=== PATIENT | male | born 1980 | race Caucasian/White ===

== ENCOUNTER 2024-05-07 00:54 | Emergency (ER) | payer OTHER, SELFPAY ==
[2024-05-07 00:57] VITALS: BP 131/88
[2024-05-07 01:35] LABS: Amphetamines Negative (Negative); Barbiturates Negative (Negative); Benzodiazepines Positive (Negative); Buprenorphine Negative (Negative); Cocaine Negative (Negative); Marijuana Positive (Negative); Methadone Negative (Negative); Methamphetamines Negative (Negative); Opiates Negative (Negative); Phencyclidine Negative (Negative); Tricyclic Antidepressants Negative (Negative)
[2024-05-07 01:45] LABS: Fentanyl, Urine Negative (Negative)
[2024-05-07 02:45] VITALS: BMI 23.3
[2024-05-07 02:49] VITALS: BP 110/75
[2024-05-07 03:00] VITALS: BP 122/81
--- NOTE | 2024-05-07 03:25 | ED.GENMED ---
History of Present Illness
General
Chief Complaint: Substance Abuse
Source: patient and family
Exam Limitations: clinical condition and altered mental status
Time Seen by Provider: 05/07/24 03:13
Nursing documentation reviewed up to this point in time: agreed with
History of Present Illness
History of Present Illness:
43-year-old male presents to the emergency department requesting detox from opiates marijuana and Kratom. Patient was recently discharged from a psych facility. Patient states that he request rehab. Patient's significant other reports that she
was on the phone with crisis and his therapist today and they told him to come into the emergency department to see Manoj arguetas for help with placement. Patient has no other complaints at this time.
Review of Systems
Review of Systems
Allergies reviewed?: Yes
Other source history: family
All Other Systems: ROS reviewed and negative except as documented in HPI and ROS
Constitutional: Reports no symptoms
EENT: Reports no symptoms
Respiratory: Reports no symptoms
Cardiac: Reports no symptoms
ABD/GI: Reports no symptoms
: Reports no symptoms
Musculoskeletal: Reports no symptoms
Skin: Reports no symptoms
Neurological: Reports no symptoms
Endocrine: Reports no symptoms
Hematologic/Lymphatic: Reports no symptoms
Psychiatric: Reports anxiety; Denies depression or suicidal
Phy Exam
General Physical Exam
General Presentation: mild distress
General age: appears older than age
General Skin: warm and dry
General Habitus: normal
General Hydration: appears well hydrated
Cardiovascular Exam
Cardiovascular Exam: regular rate/rhythm and no edema
Neurological Exam
Neurological Exam: alert, oriented x3, appears intoxicated and slurred speech
Musculoskeletal Exam
Musculoskeletal Exam: full ROM
Skin Exam
Skin Exam: normal color and warm/dry
Psychiatric Exam
Psychiatric Exam: normal mood/affect
Course
Orders/Labs/Results
Orders:
Orders
08/23/24 01:10
Fentanyl, Urine Urgent
Urine Drug Abuse Screen Urgent
Date Specimen was Collected: 05/07/24
Time Specimen was Collected: 01:06
05/07/24 03:43
Acetaminophen Urgent
Alcohol Urgent
Complete Blood Count/With Diff Urgent
Comprehensive Metabolic Panel Urgent
Salicylate Urgent
05/07/24 04:18
PTT Urgent
Comment: REDRAW
Prothrombin Time Urgent
Is patient on Coumadin/Warfarin?: Unknown
Comment: REDRAW
Abnormal Lab Results
05/07/24 05/07/24
01:10 03:43
MCH 31.5 H pg
(27.0-31.0)
Absolute Monos (auto) 0.8 H 10^3/uL
(0.1-0.6)
Salicylates < 1.0 L mg/dl
(2.0-20.0)
Ur Oxycodone Screen Positive H
(Negative)
Acetaminophen < 10 L ug/ml
(10-30)
U Benzodiazepines Scrn Positive H
(Negative)
U Marijuana (THC) Screen Positive H
(Negative)
05/07/24 03:43
05/07/24 03:43
Vital Signs
Initial and Last Documented VS:
Initial Vital Signs
Temp Pulse Resp BP Pulse Ox
97.6 F 94 18 131/88 95
05/07/24 00:57 05/07/24 00:57 05/07/24 00:57 05/07/24 00:57 05/07/24 00:57
Last Documented Vital Signs
Temp Pulse Resp BP Pulse Ox
97.6 F 65 20 122/81 96
05/07/24 02:45 05/07/24 06:45 05/07/24 06:45 05/07/24 03:00 05/07/24 06:45
*Critical Care Note
Total Time (30-74mins, 75-104mins- exclusive of procedures): Not Applicable
ED Attending Note
-
Portions of this chart may have been created with voice recognition software.� Occasional wrong word or��sound alike� substitutions may have occurred due to the inherent limitations of voice recognition software.
Discharge Plan
Departure
Patient Disposition: Acute Rehab Facility
Date of Disposition: 05/07/24
Time of Disposition: 06:26
Discharge Problem:
Polysubstance abuse
Instructions: Polysubstance Use Disorder (DC), BLOOD PRESSURE
Prescriptions:
No Action
sodium,potassium,mag sulfates [Suprep Bowel Prep Kit] 17.5-3.13-1.6 gram Recon Soln
1 oz PO PRE OP PRN (Reason: pre op)
Marijuana
1 dose inhalation PRN PRN (Reason: anxiety)
Patient Comments:
Smokes joints
acetaminophen [acetaminophen] 325 mg tablet
650 mg PO Q4HPRN PRN (Reason: mild pain) Qty: 1 0RF
ibuprofen 200 mg tablet
400 - 600 mg PO Q6HPRN PRN (Reason: moderate pain) Qty: 1 0RF
oxycodone 5 mg tablet
5 mg PO Q4HPRN PRN (Reason: breakthrough/severe pain) Qty: 15 0RF
escitalopram oxalate [Lexapro] 10 mg Tablet
10 mg PO BID Qty: 30 0RF
Referrals:
Criss Toledo MD [Family Provider] -
Roselia Roman [Active] -
Activity Restrictions/Additional Instructions:
It was a pleasure meeting you and taking part in your care. We hope for your continued healing and wellness.
Please read discharge instructions in their entirety. However, they are for general education and may not describe your exact diagnosis at discharge. Information on your ER visit and medical conditions were discussed with you along with appropriate
follow up information...
If indicated, please take your medications as instructed and indicated on discharge paperwork.
Please schedule a follow up appointment as directed. Call to schedule an appointment
Please return to the emergency department with ANY change in, persisting, or worsening of symptoms. If any of your symptoms do not improve, or persist, or become more severe within 6-12 hours, please return to the emergency department for further
care.
Please return to the emergency department if you develop a headache, neck pain/stiffness, fever greater than 100.4F, chest pain, shortness of breath, persistent nausea, vomiting, slurred speech, difficulty walking, numbness/tingling, weakness, signs
of infection or any other symptoms that are worrisome to you.
If you have any questions or concerns please do not hesitate to call the Hospital at
Interventions
Interventions:
*Risk Screen - Suicide Last Done: 05/07/24 00:57
*General Assessment Last Done: 05/07/24 00:57
*Neglect/Abuse Screening Last Done: 05/07/24 00:57
ED- Fall Risk Assessment Last Done: 05/07/24 06:55
*ED COVID-19 Vaccine History Last Done: 05/07/24 00:57
*Nursing Disposition Last Done: 05/07/24 06:55
ED-Psychological Assessment Last Done: 05/07/24 02:45
Discharge Date and Time
Discharge Date/Time: 05/07/24 06:55
Print Language: SETSWANA
[2024-05-07 04:04] LABS: % Basophils 0.5 % (0-2); % Eosinophils 5.4 % (0-6); % Immature Granulocytes 0.4 % (0-0.5); % Lymphocytes 31.5 % (20.5-51.1); % Monocytes 8.2 % (1.7-9.3); Absolute Basophils 0.1 10^3/uL (0-0.2); Absolute Eosinophils 0.5 10^3/uL (0-0.7); Absolute Lymphocytes 2.9 10^3/uL (1.2-3.4); Absolute Monocytes 0.8 10^3/uL (0.1-0.6); Hematocrit 42.5 % (39.0-52.0); Hemoglobin 15.1 g/dL (13.0-18.0); Mean Corp Hgb Conc. 35.5 g/dL (33.0-37.0); Mean Corpuscular Hgb 31.5 pg (27.0-31.0); Mean Corpuscular Volume 88.5 fL (80.0-94.0); Mean Platelet Volume 9.7 fL (7.4-10.4); Nucleated Red Blood Cells % 0 % (-); Platelet Count 169 10^3/uL (130-400); Red Cell Dist. Width 12.6 % (11.5-14.5); White Blood Cell Count 9.2 10^3/uL (4.8-10.8)
[2024-05-07 04:18] LABS: ALT (SGPT) 31 U/L (0-50); AST (SGOT) 35 U/L (17-59); Acetaminophen < 10 ug/ml (10-30); Albumin 4.4 g/dl (3.5-5.0); Alkaline Phosphatase 74 U/L (38-126); Blood Urea Nitrogen 15 mg/dl (9-20); Calcium 9.2 mg/dl (8.4-10.2); Carbon Dioxide 26 mmol/L (22-30); Chloride 105 mmol/L (98-107); Estimated Creatinine Clearance > 125 ml/min; Glucose 88 mg/dl (70-99); Potassium 3.8 mmol/L (3.5-5.1); Salicylate < 1.0 mg/dl (2.0-20.0); Sodium 142 mmol/L (135-145); Total Bilirubin 0.5 mg/dl (0.2-1.3); Total Protein 6.7 g/dl (6.3-8.2); eGFR > 60.00
[2024-05-07 04:20] LABS: Alcohol None Detected
[2024-05-07 04:53] LABS: APTT 29.4 Sec (23.4-35.0); INR 0.94; PT 12.6 Sec (11.4-14.6)
== END 2024-05-07 06:55 ==
LOC: EMR 00:54
PROVIDERS: EMERGENCY PHYSICIAN Student in an Organized Health Care Education/Training Program; FAMILY PHYSICIAN Internal Medicine
DX: F19.10 Other psychoactive substance abuse, uncomplicated (principal); R47.81 Slurred speech; F12.10 Cannabis abuse, uncomplicated; F41.9 Anxiety disorder, unspecified; K57.90 Diverticulosis of intestine, part unspecified, without perforation or abscess without bleeding; M19.90 Unspecified osteoarthritis, unspecified site; F43.10 Post-traumatic stress disorder, unspecified; F17.210 Nicotine dependence, cigarettes, uncomplicated
CPT/HCPCS: 99285; 80053; 80143; 80179; 80306; 80307; 82077; 85025; 85610; 85730

== ENCOUNTER 2024-07-17 10:28 | Emergency (ER) | payer OTHER, SELFPAY ==
[2024-07-17 10:39] VITALS: BP 144/91
[2024-07-17 11:25] VITALS: BMI 23.7
--- NOTE | 2024-07-17 12:00 | ED.GENMED ---
History of Present Illness
General
Chief Complaint: Prescription Refill
Source: patient
Exam Limitations: none
Time Seen by Provider: 07/17/24 11:11
Nursing documentation reviewed up to this point in time: agreed with
History of Present Illness
History of Present Illness:
Patient is a 43-year-old male with history of polysubstance abuse( last took narcotics 3 months ago) request refill of Suboxone. He reports he ran out of this yesterday. He is on buprenorphine/naloxone 8 mg / 2 mg. He reports he gets it from [facility] . He has prescribed 2 tablets a day but reports he ran out and took last dose yesterday.
Patient has no physical complaints.
Review of Systems
Review of Systems
Allergies reviewed?: Yes
All Other Systems: ROS reviewed and negative except as documented in HPI and ROS
Constitutional: Reports no symptoms
Respiratory: Reports no symptoms
Cardiac: Reports no symptoms
ABD/GI: Reports no symptoms
: Reports no symptoms
Musculoskeletal: Reports no symptoms
Skin: Reports no symptoms
Neurological: Reports no symptoms
Psychiatric: Reports no symptoms
Phy Exam
General Physical Exam
General Presentation: well appearing
General age: appears stated age
General Skin: warm
General Habitus: normal
General Mental: alert
General Hydration: appears well hydrated
Neurological Exam
Neurological Exam: alert and oriented x3
Musculoskeletal Exam
Musculoskeletal Exam: full ROM
Skin Exam
Skin Exam: normal color and warm/dry
Psychiatric Exam
Psychiatric Exam: normal mood/affect
Course
Orders/Labs/Results
Orders:
Orders
07/17/24 13:45
Buprenorphine [Subutex] 16 mg SL NOW STA
Vital Signs
Initial and Last Documented VS:
Initial Vital Signs
Temp Pulse Resp BP Pulse Ox
97.7 F 71 18 144/91 97
07/17/24 10:39 07/17/24 10:39 07/17/24 10:39 07/17/24 10:39 07/17/24 10:39
Last Documented Vital Signs
Temp Pulse Resp BP Pulse Ox
97.7 F 71 18 144/ 97
07/17/24 10:39 07/17/24 10:39 07/17/24 10:39 07/17/24 10:39 07/17/24 10:39
Divorce Mediator consulted with Physician
Divorce Mediator consulted with physician?: Yes
Name of Physician Consulted: Alvaro
MDM/Problems Addressed
MDM/Problems Addressed:
Patient is a 43-year-old male requesting refill of Suboxone. He tells me he ran out yesterday.
He is on buprenorphine/naloxone 8 mg / 2 mg(2 tabs daily )
I spoke to [facility] pharmacy 24-hour at [place] and staff reports patient had this prescription filled July 05 and it was supposed to be for 15-day supply to run out on July 20(in 3 days). In addition staff reports that hisprevious
prescription was written on Jun 21 for a total of 30 days. this last prescription was written because patient stated he' lost his previous medication' as per pharmacy staff.
Will hold off on any prescription.
Patient was given 1 dose of Subutex 16 mg we do not carry the naloxone. Encourage follow-up with his outpatient provider.
*Critical Care Note
Total Time (30-74mins, 75-104mins- exclusive of procedures): Not Applicable
ED Attending Note
-
Portions of this chart may have been created with voice recognition software.� Occasional wrong word or��sound alike� substitutions may have occurred due to the inherent limitations of voice recognition software.
Discharge Plan
Departure
Patient Disposition: Home (Routine Discharge)
Date of Disposition: 07/17/24
Time of Disposition: 13:51
Patient with high blood pressure during this ER visit?: Yes
Condition: Fair
Covid-19: Not Applicable
Discharge Problem:
Medication requested
Instructions: BLOOD PRESSURE
Prescriptions:
No Action
sodium,potassium,mag sulfates [Suprep Bowel Prep Kit] 17.5-3.13-1.6 gram Recon Soln
1 oz PO PRE OP PRN (Reason: pre op)
Marijuana
1 dose inhalation PRN PRN (Reason: anxiety)
Patient Comments:
Smokes joints
acetaminophen [acetaminophen] 325 mg tablet
650 mg PO Q4HPRN PRN (Reason: mild pain) Qty: 1 0RF
ibuprofen 200 mg tablet
400 - 600 mg PO Q6HPRN PRN (Reason: moderate pain) Qty: 1 0RF
oxycodone 5 mg tablet
5 mg PO Q4HPRN PRN (Reason: breakthrough/severe pain) Qty: 15 0RF
escitalopram oxalate [Lexapro] 10 mg Tablet
10 mg PO BID Qty: 30 0RF
Referrals:
Criss Toledo MD [Family Provider] -
Activity Restrictions/Additional Instructions:
Follow-up with your outpatient [facility] for further medications.
Interventions
Interventions:
*Risk Screen - Suicide Last Done: 07/17/24 10:43
*General Assessment Last Done: 07/17/24 10:43
*Neglect/Abuse Screening Last Done: 07/17/24 10:43
ED- Fall Risk Assessment Last Done: 07/17/24 11:25
*ED COVID-19 Vaccine History Last Done: 07/17/24 11:25
Discharge Date and Time
Print Language: MALDIVIAN
--- NOTE | 2024-07-17 12:37 | CM ---
CM was consulted to confirm patient current d/a treatment program. CM reviewed medical records. CM noted that patient had been referred to [facility] in April 2024. CM attempted to contact outpatient provider. Provider office
is now closed.
CM left message for [facility] bilingual call center representative. Awaiting call back.
Patient did confirm that he being seen by [facility]. CM stated that he called his provider yesterday but provider was not available to renew his prescription. He was advised to present to the emergency department. Patient attempted
to call his provider while CM was in the room. Provider office is closed.
Patient stated that he gets his prescription from [facility] pharmacy in [place]. Plan for ER SOUVENIR [employer]SEMBLER to call patient's pharmacy to confirm prescription.
[2024-07-17] MEDS: SUBUTEX 16 MG SL (14:34)
[2024-07-17 14:50] VITALS: BP 141/95
== END 2024-07-17 14:52 | disposition home or self-care (01) ==
LOC: EMR 10:28
PROVIDERS: EMERGENCY PHYSICIAN Emergency Medicine; FAMILY PHYSICIAN Internal Medicine
DX: Z76.0 Encounter for issue of repeat prescription (principal); R03.0 Elevated blood-pressure reading, without diagnosis of hypertension; F19.11 Other psychoactive substance abuse, in remission
CPT/HCPCS: 99281